=== PATIENT | male | born 1975 ===

== ENCOUNTER 2018-03-10 20:44 | Emergency (ER) | payer OTHER ==
[~2018-03-10] VITALS: Ht 182.9 cm; Wt 94.3 kg
[~2018-03-10 20:44] MED LIST: AMOX1TAB12 PO; KETO10TA2 PO
== END 2018-03-11 00:41 | disposition home or self-care (01) ==
LOC: ER 20:44
DX: S13.4XXA Sprain of ligaments of cervical spine, initial encounter (principal); S33.8XXA Sprain of other parts of lumbar spine and pelvis, initial encounter; V43.02XA Car driver injured in collision with other type car in nontraffic accident, initial encounter; Y93.89 Activity, other specified; Y92.488 Other paved roadways as the place of occurrence of the external cause; Y99.8 Other external cause status